=== PATIENT | female | born 1980 | race Two or more races ===

== ENCOUNTER 2021-03-16 11:03 | Emergency (ER) | payer MEDICAID, OTHER ==
[~2021-03-16] VITALS: Ht 167.6 cm; Wt 73.5 kg
[2021-03-16] MEDS ORDERED: methylPREDNISolone SOD SUCC 125 MG/2 ML VL IM ONE (16:00)
[2021-03-16 16:01] VITALS: BP 118/64
== END 2021-03-16 16:03 | disposition home or self-care (01) ==
LOC: ER 11:03
DX: L25.9 Unspecified contact dermatitis, unspecified cause (principal)
CPT/HCPCS: 96372; 99283; J2930